=== PATIENT | female | born 1985 | race Caucasian/White ===

== ENCOUNTER 2020-03-21 05:56 | Inpatient (IN) | payer MEDICAID ==
[~2020-03-21] VITALS: Ht 175.3 cm; Wt 127.3 kg
--- NOTE | ~2020-03-21 | OP ---
PATIENT NAME: RADHA BRIGHT MEDICAL RECORD: [id number] :85 LOCATION:[facility] D.1218 ADMISSION DATE:03/21/20 SURGEON: JOHN BEJARANO DO DATE OF OPERATION: 03/21/2020 PREOPERATIVE DIAGNOSIS: Nonreassuring heart tracing, multiparity, desire for permanent sterilization. POSTOPERATIVE DIAGNOSIS: Nonreassuring heart tracing, multiparity, desire for permanent sterilization. PRIMARY SURGEON: John Bejarano DO DIESEL DINKEY OPERATOR SURGEON: Not applicable. ANESTHESIA: Spinal. PROCEDURE PERFORMED: Primary low transverse section via Pfannenstiel incision, bilateral tubal ligation via modified [place] technique. FINDINGS: Male infant, weight 9 pounds 3 ounces, Apgars 9 and 9, delivered at 1:00 p.m. Infant was in breech presentation; however, would not deliver in that position and fetus was turned in utero and delivered vertex. Due to difficulty delivering the fetus, a small vertical extension was made in the anterior portion of the uterus. Normal appearing bilateral fallopian tubes, bilateral ovaries. SPECIMENS: Placenta and cord. ESTIMATED BLOOD LOSS: 900 cc. IV FLUIDS: 1500 mL. URINE OUTPUT: 350 cc clear urine. COMPLICATIONS: Due to difficulty delivering fetus, a small T incision was made in the uterus. PROCEDURE: The risks, benefits, alternatives and indication of the procedure were discussed with the patient, she voiced understanding of the procedure and signed the consent. She expressed desire for permanent sterility and understood that this was a nonreversible procedure. She was taken to the OR. Spinal anesthesia was administered and found to be adequate. She was placed in the dorsal supine position with a leftward tilt. She was prepped and draped in the normal sterile fashion. A Pfannenstiel skin incision was made with a scalpel and carried down to the underlying layer of the fascia with the Bovie. The fascia was incised in the midline and extended laterally. The inferior aspect of the fascial incision was grasped with Olive clamps and the rectus muscle was dissected off sharply. Attention was then turned to the superior aspect of the fascial incision and the rectus muscle was dissected off in a similar fashion. The rectus muscle was in the midline down to the level of the peritoneum. The peritoneum was identified and noted to be free of adherent bowel and entered bluntly. The peritoneum was further with gentle traction. The bladder blade was inserted and the uterus was then incised in a transverse fashion in the lower uterine segment. The incision was extended with OPERATIVE REPORT [id number] RADHA BRIGHT cephalad caudad traction. The infant was noted to be in breech presentation; however, was unable to be delivered in that position and so the fetus was turned in utero and delivered vertex, although difficulty delivering even in that position was encountered and a small T incision was made in the anterior portion of the hysterotomy vertically. The then delivered without difficulty. Mouth and nose were suctioned. Cord was clamped and cut. The was handed off to awaiting pediatricians. The placenta was manually removed. The uterus was exteriorized and a moist lap was used to assure complete removal of placental membranes. The hysterotomy was closed in multiple layers with 0 Vicryl suture in a running locked fashion with good hemostasis noted. Both the vertical and horizontal portions of the incision were closed and were hemostatic. At that time, the right tube was grasped with a Odin and was ligated via modified [place] technique and the tube was sent to pathology. The left tube was ligated in a similar fashion with good hemostasis. The posterior cul-de-sac was irrigated with warm sterile water. The uterus, tubes and ovaries were returned back to the abdominal cavity and a moist laparotomy sponge was used to assure complete removal of blood clots and fluid from the abdominal cavity. Xochilt was placed in hysterotomy. The hysterotomy was noted to be hemostatic. The rectus muscle was closed with 2-0 Monocryl in a running fashion with good hemostasis. The fascial incision was closed with 0 Vicryl in a running fashion with good hemostasis. The subcutaneous fat was closed in a running fashion with 2-0 plain gut suture. The skin was closed in a subcuticular fashion with 3-0 Monocryl and Dermabond covering. All needle, lap, sponge, and instrument counts were correct times 2. The patient tolerated the procedure well and she was taken to recovery room in stable condition. TRANSINT:[id number] Voice Confirmation ID: [id number] DOCUMENT ID: [id number] JOHN BEJARANO DO CC: [id number] DICTATION DATE: 03/24/201925 DEPLOYMENT ENGINEER: 03/24/202146 DIS IN 03/23/20 [facility] [address] [place] [address]
[~2020-03-21 05:56] MED LIST: MOTRIN600 MG PO; PERCOCET 5/3251 TA1 PO; PRENATAL COMPLE1 TAB PO
[2020-03-21 06:43] VITALS: BP 126/78; Ht 175.3 cm; Wt 127.3 kg
[2020-03-21] MEDS ORDERED: PRENAVITE1 TAB PO (07:20)
[2020-03-21 07:47] LABS: UDS - AMPHET NEGATIVE QUAL (NEGATIVE); UDS - BARB NEGATIVE QUAL (NEGATIVE); UDS - BENZO NEGATIVE QUAL (NEGATIVE); UDS - COCAINE NEGATIVE QUAL (NEGATIVE); UDS - OPIATE NEGATIVE QUAL (NEGATIVE); UDS - PCP NEGATIVE QUAL (NEGATIVE); UDS - THC NEGATIVE QUAL (NEGATIVE)
[2020-03-21 08:22] LABS: HEMATOCRIT 37.5 % (36.0-48.0); HEMOGLOBIN 12.3 g/dL (12-16); MCH 28.4 pg (26.0-34.0); MCHC 32.8 g/dL (31.0-37.0); MCV 86.6 fL (80.0-100.0); MEAN PLATELET VOLUME 10.4 fL (7.4-10.4); RBC 4.33 10x6/uL (4.00-5.40); RDW 13.6 % (11.5-14.5); WBC 7.7 10x3/uL (4.8-10.8)
--- NOTE | 2020-03-21 14:48 | NUR ---
PERLA ROMANO SINGLE SPINDLE SCREW MACHINE OPERATOR CONSULTED FOR RUNS OR BIGEMINY AND TRIGEMINY. PT ASYMPTOMATIC. NO ORDERS RECEIVED. WILL CTM.
--- NOTE | 2020-03-21 14:57 | NUR ---
DR SNOW CONSULTED FOR CONTINUED BIGEMINY AND TRIGEMINY. ORDERS RECEIVED AND IMPLEMENTED.
--- NOTE | 2020-03-21 15:13 | NUR ---
NO FURTHER PVCS NOTED. PT REMAINS ASYMPTOMATIC. READY TO D/C TO L&D. WILL CONSULT WITH ANESTHESIA REGARDING NEED FOR TELEMETRY.
--- NOTE | 2020-03-21 15:21 | NUR ---
RECEIVED PT FROM VIA BED TO ROOM 1276. BED LOCKED AND PLACED IN LOW POSITION. VSS. HRRR WITHOUT AUDIBLE MURMUR. BBS CLEAR. BS HYPOACTIVE. ABDOMEN SOFT/NON-DISTENDED. FUNDUS FIRM AT U/1. RUBRA LOCHIA MOD AMT. SEVERAL SMALL CLOTS NOTED ON CHUX/TOWEL. PERICARE DONE. CHUX, TOWEL AND PINK PAD CHANGED. PT MOVES WELL IN BED. ABDOMINAL DRESSING DRY WITHOUT DRAINAGE NOTED. CELESTIN TO GRAVITY DRAINING MAE COLORED URINE. NEG HOMANS' SIGN. PPP. MILD, NON-PITTING EDEMA NOTED TO BLE. PIV SITE CLEAR TO LEFT HAND. SR UP X 2. CALL LIGHT IN REACH. C/O INCISIONAL PAIN OF "3" ON 0-10 PAIN SCALE. NS WITH PITOCIN INFUSING AT 125 ML/HR.
[2020-03-21 15:28] VITALS: BP 105/66
--- NOTE | 2020-03-21 15:43 | NUR ---
MORPHINE EMT/PARAMEDIC STARTED ORDERED. PT INSTRUCTED ON MED AND EMT/PARAMEDIC BUTTON. DEMONSTRATES UNDERSTANDING. ICE PACK TO INCISION.
[2020-03-21 16:47] VITALS: BP 147/64
--- NOTE | 2020-03-21 16:47 | NUR ---
PT SITTING UP IN BED. TALKING ON PHONE. VSS. PT DENIES NEEDS OR C/O.
--- NOTE | 2020-03-21 17:00 | NUR ---
PT TRANSFERED VIA BED TO ROOM 1218. BED LOCKED AND PLACED IN LOW POSITION. BEDSIDE REPORT GIVEN TO Adam CUNNINGHAM RN.
--- NOTE | 2020-03-21 17:30 | NUR ---
RATES PAIN AT 3/10, FUNDUS FIRM AT U/1 WITH SCANT BLEEDING NOTED. LARGE ICE WATER PER REQUEST. NURSERY NURSE AT BEDSIDE TALKING ABOUT INFANT PLAN OF CARE.
--- NOTE | 2020-03-21 18:20 | NUR ---
UNDERPADS CHANGED REQEUSTED. FUNDUS FIRM AT U/U WITH LIGHT BLEEDING AND NO CLOTS WITH MASSAGE. RATES PAIN AT 3/10 AND USES TACTICAL AIR CONTROL PARTY MANAGER INSTRUCTED. IN CRIB AT BEDSIDE, SIDE RAILS UP X 2 WITH CALL LIGHT IN REACH.
--- NOTE | 2020-03-21 19:30 | NUR ---
PM ROUNDS MADE, PT HOLDING , RATES INC PAIN AND CRAMPING 2/10. INFORMED PT THAT I WILL BE BACK SHORTLY TO DO ASSESSMENT, PT VERBALIZES UNDERSTANDING, DENIES NEEDS AT THIS TIME, BED IN LOW POSITION, SIDE RAILS X 2, CALL LIGHT IN REACH
--- NOTE | 2020-03-21 20:12 | NUR ---
PT HOLDING INFANT, PT DENIES NEEDS AT THIS TIME
[2020-03-21 21:30] VITALS: BP 108/69
--- NOTE | 2020-03-21 21:30 | NUR ---
ASSESSMENT PER FLOW SHEET, VS OBTAINED, IV IN LEFT HAND INTACT WITH NO REDNESS OR EDEMA INFUSING VIA PUMP NS WITH PITOCIN AT 125 ML/HR, MORPHINE DIRECTOR MEDICAL SAFETY FOR PAIN MANAGEMENT, PT INST ON AND VERBALIZES UNDERSTANDING OF DIRECTOR MEDICAL SAFETY, FF, ML, U/U, LITE BLEEDING NOTED WITH 1 PEA SIZE CLOT, ABHISHEK CARED DONE WITH WET WARM WASH CLOTHS, WHITE CHUX AND ABHISHEK PAD CHANGED, BIKINI INC WITH DRESSING CDI WITH NO DRAINAGE NOTED, ICE PACK TO ABD, CELESTIN CATH INTACT, SECURED TO LEG WITH STAT LOCK, DRAINING DARK YELLOW URINE, SCD'S NOTED NOT TO BE CONNECTED TO PUMP AT THIS TIME, SCD'S CONNECTED TO PUMP AND WORKING PROPERLY, PT REQUESTED AND SERVED FRESH H20, DENIES FURTHER NEEDS AT THIS TIME, BED IN LOW POSITION, SIDE RAILS X 2, CALL LIGHT IN REACH
--- NOTE | 2020-03-21 22:17 | NUR ---
NEW BAG OF NS WITH PITOCIN HUNG VIA PUMP PER MD ORDERS, SEE EMAR
--- NOTE | 2020-03-21 23:57 | NUR ---
NEW VIAL OF MORPHINE TO LIGHT RAIL OPERATOR, PER MD ORDERS, SEE EMAR
[2020-03-22] VITALS (7 sets, daily range): BP systolic 104–130; BP diastolic 53–72
--- NOTE | 2020-03-22 | NUR ---
VS OBTAINED, ABHISHEK PAD CHANGED, LITE BLEEDING WITH NO CLOTS, FRESH ICE PACK TO ABD, CELESTIN CATH EMPTIED, SCD'S CONTINUE ON AND WORKING PROPERLY, REQUESTED AND SERVED FRESH H20, DENIES FURTHER NEEDS AT THIS TIME, NS NURSE IN ROOM AT THIS TIME CHECKING INFANTS BS
--- NOTE | 2020-03-22 02:05 | NUR ---
PT HOLDING , INFORMED PT THAT I NEEDED TO TAKE TO NSY, PT VERBALIZES UNDERSTANDING, DENIES NEEDS, INFANT TO NSY VIA OPEN CRIB CART PER THIS RN
--- NOTE | 2020-03-22 02:45 | NUR ---
INFANT TO ROOM VIA OPEN CRIB CART PER THIS RN
--- NOTE | 2020-03-22 04:08 | NUR ---
PT AWAKE, HOLDING , BACK TO OPEN CRIB CART AT THIS TIME, VS OBTAINED, PUMPS CLEARED, CELESTIN CATH EMPTIED, ABHISHEK CARE DONE WITH WET WARM WIPES, WHITE CHUX AND ABHISHEK PAD CHANGED, LITE BLEEDING NOTED WITH NO CLOTS, ADM TORADOL SIVP PER MD ORDERS, SEE EMAR, PT REPORT USING I.S. INST, SCD'S CONTINUE ON AND WORKING PROPERLY, PT REQUESTED AND SERVED FRESH H20 AND LEMON SQUAXIN SODA, DENIES FURTHER NEEDS, INFANT BACK TO PT'S ARMS
--- NOTE | 2020-03-22 05:27 | NUR ---
PT AWAKE, INFANT, DENIES NEEDS OR PAIN AT THIS TIME, SCD'S CONTINUE ON AND WORKING PROPERLY, BED IN LOW POSITION, SIDE RAILS X 2, CALL LIGHT IN REACH
--- NOTE | 2020-03-22 06:17 | NUR ---
PT HOLDING INFANT, DENIES NEEDS OR PAIN AT THIS TIME
[2020-03-22 07:01] LABS: BASOPHILS 0.1 % (0-2); EOSINOPHILS 0.7 % (0-7); HEMATOCRIT 31.4 % (36.0-48.0); IMMATURE GRANULOCYTES 0.6 % (0-5); LYMPHOCYTES 14.5 % (15-50); MCH 27.5 pg (26.0-34.0); MCHC 31.8 g/dL (31.0-37.0); MCV 86.5 fL (80.0-100.0); MONOCYTES 6.3 % (2-11); NEUTROPHILS 77.8 % (40-80); RBC 3.63 10x6/uL (4.00-5.40); RDW 13.7 % (11.5-14.5); WBC 9.5 10x3/uL (4.8-10.8)
[2020-03-22 07:02] LABS: PLATELET COUNT 186 10x3/uL (130-400)
[2020-03-22 07:13] LABS: RAPID PLASMA REAGIN Non Reactive (Non Reactive)
--- NOTE | 2020-03-22 08:14 | NUR ---
SHIFT ASSESSMENT COMPLETED PER FLOWSHEET. VSS. FUNDUS FIRM, MIDLINE AND U2 WITH SMALL AMT RUBRA LOCHIA, NO CLOTS NOTED. PERICARE DONE. PADS AND CHUX CHANGED. BOWELS SOUNDS PRESENT AND ACTIVE X4 QUADRANT. DRSG TO LOWER TRANSVERSE ABD INCISION CLEAN, DRY, AND INTACT, NO DRAINAGE NOTED. SCD'S ON BLE, INCENTIVE SPIROMETER DONE X10. POC DISCUSSED WITH PT, VERBALIZES UNDERSTANDING AND DENIES QUESTIONS. REQUESTS TO NORMALIZE AND EAT REGULAR DIET, WILL CONTACT DR. BEJARANO FOR ORDERS. PAIN CURRENTLY 3-4/, REPORTS THAT CLINICAL TRIALS ASSISTANT IS CONTROLLING PAIN WELL. BED IN LOW POSITION WITH SRUP X2. CALL LIGHT AND PHONE WITHIN REACH. WILL CONTINUE TO MONITOR.
--- NOTE | 2020-03-22 10:11 | NUR ---
C/O ABD AND INCISIONAL DISCOMFORT, TORADOL AND PERCOCET GIVEN PER ORDER AND PT REQUEST. PIV SL, CELESTIN D/C'D WITH 700 MLS CONCENTRATED URINE PRESENT. UP TO BR, PERICARE DONE PER PT, PADS AND PANTIES PROVIDED. DENIES DIZZINESS AND LIGHTHEADEDNESS. AMBULATORY ON UNIT, STEADY GAIT NOTED. WILL CONTINUE TO MONITOR. LINENS CHANGED.
--- NOTE | 2020-03-22 10:44 | NUR ---
CONTINUES TO AMBULATE ON UNIT. PAIN REASSESSMENT COMPLETED, 12/21. DENIES NEEDS. ICE WATER PROVIDED.
--- NOTE | 2020-03-22 12:13 | NUR ---
VSS. FUNDUS FIRM, MIDLINE AND U1 WITH SCANT RUBRA LOCHIA, NO CLOTS NOTED. DENIES NEEDS AT THIS TIME. RESTING QUIETLY IN OPEN CRIB AT BEDSIDE. REFUSES SCD'S. BED IN LOW POSITION WITH SRUP X2. CALL LIGHT AND PHONE WITHIN REACH. WILL CONTINUE TO MONITOR.
--- NOTE | 2020-03-22 13:47 | NUR ---
AMBULATORY IN [place], STEADY GAIT NOTED. DENIES NEEDS AT THIS TIME. WILL CONTINUE TO MONITOR.
--- NOTE | 2020-03-22 14:11 | NUR ---
CALLS VIA CALL LIGHT, REQUESTS PAIN MEDS FOR ABD AND INCISIONAL DISCOMFORT 03/23, PROVIDED PER EMAR. SPRITE AND ICE WATER PROVIDED. DENIES ADDITIONAL NEEDS. BED IN LOW POSITION WITH SRUP X2. CALL LIGHT AND PHONE WITHIN REACH. WILL CONTINUE TO MONITOR.
--- NOTE | 2020-03-22 14:46 | NUR ---
UP TO BR, VOIDED 400 MLS. PAIN REASSESSMENT COMPLETED 11/23. STEADY GAIT NOTED. TO CHAIR IN ROOM, DENIES NEEDS. CALL LIGHT PLACED WITHIN REACH.
--- NOTE | 2020-03-22 15:49 | NUR ---
ROUNDS MADE. ON CELL PHONE AT THIS TIME. DENIES NEEDS. REMAINS UP IN CHAIR. CALL LIGHT REMAINS WITHIN REACH. INFANT RESTING QUIETLY IN OPEN CRIB. WILL CONTINUE TO MONITOR.
--- NOTE | 2020-03-22 16:58 | NUR ---
MOTRIN GIVEN PER ORDER AND PT REQUEST. C/O ABD CRAMPING 12/21. DENIES ADDITIONAL NEEDS. ICE WATER PROVIDED. VSS. FUNDUS FIRM, MIDLINE AND U2 WITH SMALL RUBRA LOCHIA, NO CLOTS NOTED. ENCOURAGED TO SHOWER, STATES THAT SHE WILL SHOWER WHEN SIGNIFICANT RETURNS THIS EVENING. BED IN LOW POSITION WITH SRUP X2. CALL LIGHT AND PHONE WITHIN REACH. WILL CONTINUE TO MONITOR. REFUSES SCD'S.
--- NOTE | 2020-03-22 17:31 | NUR ---
L HAND PIV D/C'D PER PT REQUEST. TIP INTACT. VERBALIZES UNDERSTANDING THAT IF IV ROUTE NEEDED, RESTART OF PIV WILL BE NEEDED. SITTING ON EDGE OF BED BOTTLE FEEDING . 500 MLS EMPTIED FROM HAT. ICE WATER PROVIDED. DENIES ADDITIONAL NEEDS AT THIS TIME. BED IN LOW POSITION WITH SRUP X2. CALL LIGHT AND PHONE WITHIN REACH. REPORTS THAT SHE JUST USED INCENTIVE SPIROMETER.
--- NOTE | 2020-03-22 18:19 | NUR ---
C/O ABD DISCOMFORT AND INCISIONAL DISCOMFORT. PERCOCET GIVEN PER EMAR. ICE WATER PROVIDED. SKIN TO SKIN. DENIES ADDITIONAL NEEDS AT THIS TIME. BED IN LOW POSITION WITH SRUP X2. CALL LIGHT AND PHONE WITHIN REACH. WILL CONTINUE TO MONITOR.
--- NOTE | 2020-03-22 19:00 | NUR ---
REPORT GIVEN BY LAZARA LEHMAN
--- NOTE | 2020-03-22 19:30 | NUR ---
ASSESSMENT COMPLETED. PT HAS NO C/O AT THIS TIME. PT DOES NOT HAVE AN IV IN PLACE. HEART SOUNDS WNL, LUNGS CLEAR, FUNDUS FIRM. PT STATES SHE IS PASSING GAS. PT IS PLANNING TO TAKE A SHOWER A LITTLE LATER. EVERYTHING IS IN HER ROOM FOR THIS. PT STATES SHE USES HER IS EVERY HOUR. I FOUND IT PLACED ON THE BACK OF THE BEDSIDE TABLE AND NOT IN SITE OR REACHABLE. I BROUGHT IT TO HER AND HAD HER SUCK ON THE IS. SHE DOES VERY WELL GOING TO 3000 OR ABOVE. I TOLD HER SHE DID THIS GREAT BUT SHE NEEDED TO DO THIS EVERY HOUR THAT SHE IS AWAKE AT LEAST 10 TIMES. SHE SAID THAT IS WHAT SHE'D BEEN DOING. PT WALKS THE HALLS FREQUENTLY WITHOUT BEING ASKED. PT STATES SHE IS PASSING GAS. PT STATES SHE IS VOIDING WELL WITHOUT DIFFICULTY. PT REQUESTED ONE VANILLA ICE CREAM AND 1 ORANGE SHERBUT. BOTH WERE DELIVERED TO HER.
--- NOTE | 2020-03-22 21:00 | NUR ---
ROUNDS MADE. PT STATES SHE IS DOING HER IS. NO NEW C/O OR NEEDS AT THIS TIME.
--- NOTE | 2020-03-22 21:11 | NUR ---
PT HAS BEEN ASKED NICELY TO WALK MORE. SHE IS STILL IN HER ROOM AND IN HER BED. IS IS AT HER BEDSIDE. SHE WAS INSTRUCTED TO US IS EVERY HOUR SHE IS AWAKE FOR 10 TIMES. PT VERBALIZED UNDERSTANDINGI
--- NOTE | 2020-03-22 23:05 | NUR ---
ROUNDS MADE. PT REQUESTED MOTRIN. THIS WAS GIVEN PO. PT JUST GOT OUT OF THE SHOWER. NO NEEDS AT THIS TIME. PT WAS REMINDED TO DO HER IS HOURLY WHILE AWAKE.
--- NOTE | 2020-03-22 23:11 | NUR ---
PT REQUESTED PAIN MEDS. SHE WAS GIVEN A SCHEDULED MOTRIN 600 MG AND PERCOCET 10 MG PO PT HAS TAKEN A SHOWER. NO C/O OR NEEDS NOW.
--- NOTE | 2020-03-23 00:56 | NUR ---
PT RESTING QUIETLY. NO C/O AND NO NEW NEEDS.
--- NOTE | 2020-03-23 02:33 | NUR ---
PT IS AWAKE ROCKING THE CRIB. NO C/O OR NEEDS AT THIS TIME
[2020-03-23 04:00] VITALS: BP 127/69
--- NOTE | 2020-03-23 06:06 | NUR ---
SLEEPING. NO C/O OR NEEDS
--- NOTE | 2020-03-23 07:00 | NUR ---
REPORT RECEIVED FROM Adam ZIMMER RN.
--- NOTE | 2020-03-23 07:25 | NUR ---
TO ROOM FOR ASSESSMENT. PT. AWAKENED. ASSESSMENT AND VS COMPLETED. SEE FLOWSHEET. PT. STATES SHE USED INCENTIVE SPIROMETER HOURLY THROUGHOUT THE NIGHT. OFFERED PT. SHOWER AFTER BREAKFAST; PT. STATES SHE HAD A SHOWER LAST EVENING. PT. REQUESTING PAIN MEDICINE FOR INCISIONAL PAIN.
[2020-03-23 07:30] VITALS: BP 121/65
[2020-03-23] MEDS ORDERED: IBUPROFEN600 MG PO (10:08)
[2020-03-23] MEDS ORDERED: PERCOCET 5-3251 TAB PO (10:08)
--- NOTE | 2020-03-23 11:11 | NUR ---
ROUNDS MADE. PT. SITTING UP IN BED. INFANT IN BED WITH PATIENT FOR FEEDING. MOTRIN GIVEN PER SCHEDULE. NO OTHER NEEDS VOICED AT THIS TIME.
--- NOTE | 2020-03-23 13:47 | NUR ---
REVIEWED DISCHARGE INSTRUCTIONS WITH PATIENT. PRESCRIPTIONS AND FOLLOW-UP APPOINTMENT GIVEN. PT. STATES UNDERSTANDING.
--- NOTE | 2020-03-23 14:21 | MORECARE ---
CASE MANAGEMENT DISCHARGE SUMMARY PATIENT: RADHA BRIGHT UNIT: [id number] ADM DATE: 03/21/20 AGE: 34 : 85 SEX: F ROOM/BED: D.1218 AUTHOR: SANIYA VALLE PHYSICIAN: REFERRING PHYSICIAN: JOHN BEJARANO DO DATE OF SERVICE: 03/23/20 Discharge Plan Patient Name: RADHA BRIGHT Facility: [facility]:[place] : 1985 Planned Disposition: Home Anticipated Discharge Date: 03/23/20 Discharge Date: Expected LOS: 2 Initial Reviewer: [email or web address] Initial Review Date: 03/21/2020 Generated: 03/23/20 3:20 pm Patient Name: RADHA BRIGHT Page [phone] at 1421 All edits/amendments must be made on the electronic document DICTATION DATE: 03/23/20 142 FRUIT PRESS OPERATOR: SYLVIE 03/23/20 1420 RPT#: [id number] DC DATE: STATUS: ADM IN [facility] [address] [place] [address] END OF REPORT
--- NOTE | 2020-03-23 14:45 | NUR ---
PT DISCHARGED HOME AMBULATORY VIA PRIVATE VEHICLE ACCOMPANIED BY THIS NURSE.
== END 2020-03-23 14:40 | disposition home or self-care (01) | DRG 785 ==
LOC: D.LDO 05:56 → D.LD 05:57 → D.WS 05:57
PROVIDERS: ADMIT Student in an Organized Health Care Education/Training Program; ATTEND Student in an Organized Health Care Education/Training Program
PROC: 10D00Z1 Extraction of Products of Conception, Low, Open Approach (ICD-10-PCS; principal; 2020-03-21 11:00)
PROC: 0UB70ZZ Excision of Bilateral Fallopian Tubes, Open Approach (ICD-10-PCS; 2020-03-21 11:00)
DX: O99.824 Streptococcus B carrier state complicating childbirth (principal); Z3A.39 39 weeks gestation of pregnancy; Z37.0 Single live birth; O36.8330 Maternal care for abnormalities of the fetal heart rate or rhythm, third trimester, not applicable or unspecified; O36.63X0 Maternal care for excessive fetal growth, third trimester, not applicable or unspecified; Z30.2 Encounter for sterilization